=== PATIENT | female | born 1985 | race Caucasian/White ===

== ENCOUNTER 2021-08-29 12:28 | Day surgery (SDC) | payer OTHER ==
[~2021-08-29] VITALS: Ht 165.1 cm; Wt 104.8 kg
[~2021-08-29 12:28] MED LIST: BIOT10TA2 PO; MAXA10TA14 PO; NS 1,000 ML IV ONE; OMEP40CA5 PO; ONDA-83 PO; PROP40TA62 PO; TRAZ1TAB10 PO
[2021-08-29] MEDS ORDERED: propofoL 200 MG/20 ML VIAL As Ordered ONE (14:03)
[2021-08-29] MEDS ORDERED: LIDOCAINE 2% 100MG/5ML SDV (FOR ANES.) As Ordered ONE (14:03)
[2021-08-29 15:04] VITALS: BP 157/84
== END 2021-08-29 15:18 | disposition home or self-care (01) ==
LOC: M OPP 12:28
PROVIDERS: ATTEND Internal Medicine Gastroenterology
DX: K31.84 Gastroparesis (principal); F50.2 Bulimia nervosa; F55.2 Abuse of laxatives; K21.9 Gastro-esophageal reflux disease without esophagitis; G43.909 Migraine, unspecified, not intractable, without status migrainosus; G47.30 Sleep apnea, unspecified; R06.83 Snoring; Z79.899 Other long term (current) drug therapy